=== PATIENT | male | born 1945 | race Caucasian/White ===

== ENCOUNTER 2017-02-27 21:15 | Inpatient (IN) | payer OTHER, MEDICARE ==
[2017-02-27] MEDS ORDERED: NS 1,000 ML IV ONE (21:33)
[2017-02-27 21:40] LABS: % IMMATURE GRANULYOCYTES 0.3 % (0.0-1.1); ABSOLUTE IMMATURE GRANULOCYTES 0.03 10^3/uL (0.00-0.10); ADD DIFF? NO; ADD MORPH? NO; ADD SCAN? NO; ATYPICAL LYMPHOCYTE FLAG 20 (0-99); FRAGMENT RBC FLAG 0 (0-99); HEMATOCRIT 45.3 % (40.0-51.0); HEMOGLOBIN 15.5 g/dL (13.7-17.5); LEFT SHIFT FLG 0 (0-99); LIPEMIA HEMOLYSIS FLAG 90 (0-99); MEAN CELL HEMOGLOBIN 31.3 pg (27.9-34.1); MEAN CELL HEMOGLOBIN CONCENTR. 34.2 g/dL (32.4-36.7); MEAN CELL VOLUME 91.5 fL (81.5-99.8); MEAN PLATELET VOLUME 10.8 fL (8.7-11.7); PLATELET CLUMPS FLAG 20 (0-99); PLATELET COUNT 190 10^3/uL (150-400); RED BLOOD CELL COUNT 4.95 10^6/uL (4.40-6.38); RED CELL DISTRIBUTION WIDTH 12.7 % (11.5-15.2)
--- NOTE | 2017-02-27 21:46 | CPEKG ---
Heart Rate: 68 RR Interval: 882 P-R Interval: 176 QRSD Interval: 88 QT Interval: 400 QTC Interval: 426 P [place]: 68 QRS [place]: 45 T Wave [place]: 17 EKG Severity - OTHERWISE NORMAL ECG - EKG Impression: SINUS RHYTHM EKG Impression: VENTRICULAR PREMATURE COMPLEX Electronically Signed By: Marlon Dumont 27-Feb-2017 22:10:13
[2017-02-27 21:51] LABS: INR 1.04 (0.83-1.16); PROTIME(PATIENT) 13.3 SEC (12.0-15.0)
[2017-02-27 21:52] LABS: APTT 26.9 SEC (23.0-38.0)
[2017-02-27 21:53] LABS: ALANINE AMINOTRANSFERASE 44 IU/L (21-72); ALBUMIN 3.6 g/dL (3.5-5.0); ALKALINE PHOSPHATASE 84 IU/L (38-126); ANION GAP 12 mEq/L (8-16); ASPARTATE AMINOTRANSFERASE 34 IU/L (17-59); BILIRUBIN,TOTAL 1.3 mg/dL (0.1-1.4); CARBON DIOXIDE 22 mEq/l (22-31); CHLORIDE 106 mEq/L (97-110); GLOMERULAR FILTRATION RATE > 60; GLUCOSE 84 mg/dL (70-100); POTASSIUM 4.1 mEq/L (3.5-5.2); SODIUM 140 mEq/L (134-144); TOTAL PROTEIN 6.5 g/dL (6.3-8.2)
[2017-02-27] MEDS ORDERED: IOPAMIDOL (ISOVUE 370) 100 ML BTL IV ONE (21:56)
--- NOTE | 2017-02-27 22:01 | EDPHY ---
H & P Stated Complaint: r/o cva onset 1999 Time Seen by Provider: 02/27/17 21:20 HPI/ROS: This patient had onset of expressive aphasia at 8:00 p.m. tonight while he was riding with a janet back from a fishing trip in [place] all day. Is bloody reports that the patient had difficulty finding words and also some associated dysarthria. His friend also felt like the patient might of had some facial asymmetry earlier that seems to have resolved citing some left facial droop. However, his body admits that was subtly noticed mostly the changes in the patient's speech. The symptoms resolved after about 545 minutes but then started recurring approximately 15 minutes prior to arrival here. Physiologic stressors over the last 24 hours includes only 45 minutes of sleep last night and drinking alcohol earlier in the day-4 beers and 4 shots. In recent history , the patient notes that while working approximately 1 week ago [employer] he had some difficulty with word finding a stumbled over words. The symptoms resolved within hours and he did not see a physician at that time. ROS: Constitutional: No recent fevers. No other constitutional complaints except for fatigue from lack of sleep and fishing all day in the sun. He admits he did not drink much in the way of fluids today other than alcohol. Neuro: No headache. He reports no visual changes. He reports no focal numbness tingling or weakness. Pulmonary: No cough shortness of breath Cardiovascular: No chest pain or heart palpitations. No lightheadedness no lower extremity swelling. GI: No nausea or vomiting. Normal bowel movements. : No symptoms Integumentary: No skin rash. 10 point ROS is otherwise negative. Source: Patient, Other (A friend accompanies him who happens to be a quality specialist who was fishing with him today.) Exam Limitations: Clinical condition - Medical/Surgical History PMH: Coronary artery disease with an LAD stent without WA [address] Arnold Dumont Hypertension Dyslipidemia Other PMH: stent - Family History Significant Family History: Other (Ischemic stroke) - Social History Smoking Status: Never smoked Alcohol Use: Occasionally (Including 4 shots in for beers early in the day.) Drug Use: None - Physical Exam Exam: Physical exam: Vital signs are normal General: Patient is in no acute distress. HEENT: Is no external evidence of trauma on exam. Eyes: Pupils are equal and reactive to light. Extraocular motions are intact. Optic fundi: Clear with no papilledema or hemorrhage. Nose atraumatic. Ears: Clear bilaterally with no hemotympanum. Oropharynx: No dental trauma or malocclusion. No intraoral lacerations. Eyes: Pupils are equal and reactive to light. Extraocular motions are intact. Optic fundi: Clear with no papilledema or hemorrhage. Lungs: Clear to auscultation bilaterally Neck: Supple no meningismus. Cardiac: Regular rate and rhythm no murmur gallop or rub. Abdomen: Soft nontender no organomegaly Neuro: NIH stroke scale of 1 initially for mild dysarthria. Cranial nerves II through XII intact. Cerebellar exam is normal as judged by symmetric rapid hand movements bilaterally. No pronator drift. No sensory or motor deficits are appreciated other than initial dysarthria and perhaps some mild word- finding difficulties. Initial differential diagnosis: Stroke, TIA, alcohol intoxication, heat exhaustion, metabolic disarray, DIRECTOR OF SURGERY lesion, intracranial bleed Constitutional: Initial Vital Signs Temperature (C) 36.5 C 02/27/17 21:23 Heart Rate 64 02/27/17 21:23 Respiratory Rate 16 02/27/17 21:23 Blood Pressure 152/97 H 02/27/17 21:23 O2 Sat (%) 96 02/27/17 21:23 O2 Delivery Mode Room Air Allergies/Adverse Reactions: No Known Allergies Allergy (Unverified 08/21/10 12:23) Medical Decision Making - Diagnostics EKG Interpretation: 12 lead EKG performed shortly after arrival at 9:44 p.m. reveals sinus rhythm at 68 Intervals: Normal throughout [place]: Normal ST segments: Normal throughout 1 PVC overall assessment: Sinus rhythm with 1 PVC. No significant interval change when compared to prior EKG dated August 22, 2010 Imaging Results: Imaging Impressions Head CT 02/27/17 21:20 Impression: 1. Left frontal cortical 3- x 3-cm encephalomalacia possibly representing an old infarct. Less likely differential includes arachnoid cyst. 2. Posterior left frontal lobe 3- x 2.5-cm subcortical white matter hypodensity suggesting vasogenic edema, which may be related to venous infarct or underlying neoplasm versus metastasis. 3. Recommend MRI brain, without and with contrast enhancement, for further evaluation. Findings and recommendations discussed with Emergency Department physician, Marlon Dumont M.D., at 2139 hours, on February 27, 2017. Final report concurs with initial preliminary interpretation. E:GI/amm Head CTA 02/27/17 21:54 Impression: 1. No carotid occlusion, dissection, or significant atherosclerotic disease. 2. No vertebral dissection or occlusion. Measurement of carotid stenosis is based on the residual internal carotid diameter with [place] Symptomatic Carotid Endarterectomy Trial (NASCET) based stenosis levels. CT Angiogram of the Brain Clinical Indications: Stroke protocol. Dysarthria, TIA versus stroke. Technique: CT angiogram of the brain and neck was performed, with the uneventful intravenous administration of 90 mL Isovue-370 contrast. Multiplanar reconstructions including 3D reconstructions performed and evaluated on [email or web address].fma workstation in order to better evaluate the [place] vessels. Images were manipulated by the radiologist at the computer workstation. Dose reduction techniques were utilized. Findings: Major vessels of the [place] are adequately displayed, demonstrating no evidence of aneurysm, vascular malformation, flow-limiting stenosis, or occlusion. Bilateral cavernous internal carotid arteries and vertebrobasilar system demonstrates no evidence of flow-limiting stenosis, aneurysm, occlusion, or dissection. Superior sagittal sinus, transverse sinuses , and major veins demonstrate no evidence of intraluminal thrombi. However, in the posterior left frontal lobe posterior to the left sylvian fissure, there is a complex cystic and solid mass, measuring 3.8 x 3.2 x 4.2 cm , with a cystic component inferiorly and a nodular enhancing component along the superior margin cortex, measuring 2.5 x 2 x 1.8 cm, with adjacent posteromedial vasogenic edema. Mild mass effect, without midline shift. Impression: 1. 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 2. No evidence of flow-limiting [place] stenosis or superior sagittal sinus thrombosis. Findings and recommendations discussed with Emergency Department physician, Marlon Dumont M.D., at 2223 hours, on February 27, 2017. Final report concurs with initial preliminary interpretation. Neck CTA 02/27/17 21:54 Impression: 1. No carotid occlusion, dissection, or significant atherosclerotic disease. 2. No vertebral dissection or occlusion. Measurement of carotid stenosis is based on the residual internal carotid diameter with [place] Symptomatic Carotid Endarterectomy Trial (NASCET) based stenosis levels. CT Angiogram of the Brain Clinical Indications: Stroke protocol. Dysarthria, TIA versus stroke. Technique: CT angiogram of the brain and neck was performed, with the uneventful intravenous administration of 90 mL Isovue-370 contrast. Multiplanar reconstructions including 3D reconstructions performed and evaluated on [email or web address].fma workstation in order to better evaluate the [place] vessels. Images were manipulated by the radiologist at the computer workstation. Dose reduction techniques were utilized. Findings: Major vessels of the [place] are adequately displayed, demonstrating no evidence of aneurysm, vascular malformation, flow-limiting stenosis, or occlusion. Bilateral cavernous internal carotid arteries and vertebrobasilar system demonstrates no evidence of flow-limiting stenosis, aneurysm, occlusion, or dissection. Superior sagittal sinus, transverse sinuses , and major veins demonstrate no evidence of intraluminal thrombi. However, in the posterior left frontal lobe posterior to the left sylvian fissure, there is a complex cystic and solid mass, measuring 3.8 x 3.2 x 4.2 cm , with a cystic component inferiorly and a nodular enhancing component along the superior margin cortex, measuring 2.5 x 2 x 1.8 cm, with adjacent posteromedial vasogenic edema. Mild mass effect, without midline shift. Impression: 1. 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 2. No evidence of flow-limiting [place] stenosis or superior sagittal sinus thrombosis. Findings and recommendations discussed with Emergency Department physician, Marlon Dumont M.D., at 2223 hours, on February 27, 2017. Final report concurs with initial preliminary interpretation. CT brain without contrast discussed with Dr. Juarez-Radiology - evidence of old 3 cm left frontoparietal stroke versus subarachnoid cyst Imaging: Discussed imaging studies w/ lead pony rider Radiologist ED Course/Re-evaluation: Patient's initial NIH stroke scale is 1 for mild dysarthria. 20 minutes after arrival repeat stroke scale is 0. I discussed the case with Dr. Rojas on-call for [facility]. Given the patient's lack of neurologic disability currently he is not a candidate for tPA. It is unclear if this patient has old stroke on be notes to him that is unmasked by current physiologic stressors of dehydration and earlier alcohol consumption or if he has TIA or new early evolving stroke. Will proceed with CT angio head and neck and plan for admission for further workup and treatment. Hospitalist is paged CT angio head I reviewed an discuss with our radiologist Dr. Juarez. He notes that the patient's intracranial findings are consistent with intracranial tumor rather than ischemic stroke. The lesion is left frontal 2.6 x 1 points 9 cm and with surrounding vasogenic edema is 4.2 x 3.2 cm. I discussed this finding with the patient and he wishes to proceed with admission for further workup and treatment. His friend-a off duty quality specialist will drive him to the hospital for his admission to Dr. Lio Flores, the neurosurgeon on-call for [facility] with whom I discussed the case. Discussion: It may be that the patient's physiologic stressors refer to above on masked this intracranial lesion. He will be admitted for further workup and treatment - Data Points Laboratory Results: Laboratory Results 02/27/17 21:25 02/27/17 21:25 02/27/17 02/27/17 02/27/17 21:27 21:25 21:25 WBC RBC Hgb POC Hgb 16.0 gm/dL gm/dL (13.7-17.5) Hct POC Hct 47 % % (40-51) MCV MCH MCHC RDW Plt Count MPV Neut % (Auto) Lymph % (Auto) [place] % (Auto) Eos % (Auto) Baso % (Auto) Nucleat RBC Rel Count Absolute Neuts (auto) Absolute Lymphs (auto) Absolute Monos (auto) Absolute Eos (auto) Absolute Basos (auto) Absolute Nucleated RBC Immature Gran % Immature Gran # PT 13.3 SEC SEC (12.0-15.0) INR 1.04 (0.83-1.16) APTT 26.9 SEC SEC (23.0-38.0) POC Sodium 143 mEq/L mEq/L (134-144) Sodium 140 mEq/L mEq/L (134-144) POC Potassium 3.9 mEq/L mEq/L (3.3-5.0) Potassium 4.1 mEq/L mEq/L (3.5-5.2) POC Chloride 106 mEq/L mEq/L (97-110) Chloride 106 mEq/L mEq/L (97-110) Carbon Dioxide 22 mEq/l mEq/l (22-31) Anion Gap 12 mEq/L mEq/L (8-16) POC BUN 23 mg/dL mg/dL (7-23) BUN 21 mg/dL mg/dL (7-23) Creatinine 1.0 mg/dL mg/dL (0.7-1.3) POC Creatinine 1.1 mg/dL mg/dL (0.7-1.3) Estimated GFR > 60 Glucose 84 mg/dL mg/dL (70-100) POC Glucose 89 mg/dL mg/dL (70-100) Calcium 9.0 mg/dL mg/dL (8.5-10.4) Total Bilirubin 1.3 mg/dL D mg/dL (0.1-1.4) AST 34 IU/L IU/L (17-59) ALT 44 IU/L IU/L (21-72) Alkaline Phosphatase 84 IU/L IU/L (38-126) Troponin I < 0.012 ng/mL ng/mL (0-0.034) Total Protein 6.5 g/dL g/dL (6.3-8.2) Albumin 3.6 g/dL g/dL (3.5-5.0) 02/27/17 21:25 WBC 9.76 10^3/uL H 10^3/uL (3.80-9.50) RBC 4.95 10^6/uL 10^6/uL (4.40-6.38) Hgb 15.5 g/dL g/dL (13.7-17.5) POC Hgb Hct 45.3 % % (40.0-51.0) POC Hct MCV 91.5 fL fL (81.5-99.8) MCH 31.3 pg pg (27.9-34.1) MCHC 34.2 g/dL g/dL (32.4-36.7) RDW 12.7 % % (11.5-15.2) Plt Count 190 10^3/uL 10^3/uL (150-400) MPV 10.8 fL fL (8.7-11.7) Neut % (Auto) 48.7 % % (39.3-74.2) Lymph % (Auto) 37.4 % % (15.0-45.0) [place] % (Auto) 9.7 % % (4.5-13.0) Eos % (Auto) 3.2 % % (0.6-7.6) Baso % (Auto) 0.7 % % (0.3-1.7) Nucleat RBC Rel Count 0.0 % % (0.0-0.2) Absolute Neuts (auto) 4.75 10^3/uL 10^3/uL (1.70-6.50) Absolute Lymphs (auto) 3.65 10^3/uL H 10^3/uL (1.00-3.00) Absolute Monos (auto) 0.95 10^3/uL H 10^3/uL (0.30-0.80) Absolute Eos (auto) 0.31 10^3/uL 10^3/uL (0.03-0.40) Absolute Basos (auto) 0.07 10^3/uL 10^3/uL (0.02-0.10) Absolute Nucleated RBC 0.00 10^3/uL 10^3/uL (0-0.01) Immature Gran % 0.3 % % (0.0-1.1) Immature Gran # 0.03 10^3/uL 10^3/uL (0.00-0.10) PT INR APTT POC Sodium Sodium POC Potassium Potassium POC Chloride Chloride Carbon Dioxide Anion Gap POC BUN BUN Creatinine POC Creatinine Estimated GFR Glucose POC Glucose Calcium Total Bilirubin AST ALT Alkaline Phosphatase Troponin I Total Protein Albumin Point of Care Test Results: 02/27/17 21:27 POC Sodium 143 POC Potassium 3.9 POC Chloride 106 POC BUN 23 POC Creatinine 1.1 POC Glucose 89 Departure - Departure Disposition: [facility] Inpatient Acute Clinical Impression: Intracranial space-occupying lesion Mental status change Qualifiers: Altered mental status type: unspecified Qualified Code(s): R41.82 - Altered mental status, unspecified Clinical Impression: (Ruled Out): Stroke Condition: Good
[2017-02-27 22:05] LABS: TROPONIN I < 0.012 ng/mL (0-0.034)
[2017-02-28] MEDS ORDERED: ONDANSETRON 4 MG/2 ML VIAL IVP PRN (00:31)
[2017-02-28] MEDS ORDERED: ACETAMINOPHEN 325 MG TAB PO PRN (00:31)
[2017-02-28] MEDS ORDERED: ONDANSETRON DISINTEGRATING 4 MG TAB PO PRN (00:31)
[2017-02-28] MEDS ORDERED: oxyCODONE IR 5 MG TAB PO PRN (00:31)
[2017-02-28] MEDS ORDERED: HYDROCODONE/APAP 5/325 TAB PO PRN (00:31)
[2017-02-28] MEDS ORDERED: NS 1,000 ML IV SCH (00:45)
[2017-02-28] MEDS ORDERED: GADOBUTROL 10 ML VIAL IVP ONE (07:02)
[2017-02-28] MEDS ORDERED: IOPAMIDOL (ISOVUE-300) 100 ML BTL ONE (10:53)
--- NOTE | 2017-02-28 11:08 | GHP ---
[f rep st] HISTORY AND PHYSICAL DATE OF ADMISSION: 02/27/2017 Patient was seen evaluated approximately 6:30 a.m. on the general care floor at [facility]. HISTORY OF PRESENT ILLNESS: The patient is a 71-year-old man who was in his normal state of health until he had a sudden onset of expressive aphasia yesterday, which was really aboulia. This was edilberto roximately 8:00 p.m., when he was riding back from a fishing trip to [place]. He says that he noted his tongue felt heavy and he was unable to speak while riding in the car and he got his friends att ention and this lasted only for 1-2 minutes and completely resolved. He then arrived home and had a similar episode lasting only a few seconds but was difficult for him to speak. He notes that about a week or 2 ago he did have some numbness of the right side of his mouth with some drooling, that also lasted only for short time and resolved completely. He presented to the free standing ER last night for evaluation of this complaint. He denies any headaches or other neurologic symptoms. He d oes not have any other very significant medical history other than a cardiac stent and some hyperten sheyla. He has not had any other change in his speech anytime recently. He does note that he had a v jabari short amount of sleep the night before and was drinking some alcohol earlier in the day during t he fishing trip. Otherwise he currently has no complaints. He had a CT scan with contrast to tasneem p possible stroke, which revealed a cystic mass in the left frontal region which appeared to be dura l based. He was then sent over to [facility] for admission and further workup of a likely tumor. REVIEW OF SYSTEMS: A 10-point review of systems was negative other than described above in the HPI. PAST MEDICAL HISTORY: 1. Coronary artery disease with cardiac stent 6 years ago. 2. Hypertension. 3. Dyslipidemia. PAST SURGICAL HISTORY: 1. Cardiac stenting. 2. Right shoulder surgery. FAMILY HISTORY: Negative for brain tumors but positive for stroke. SOCIAL HISTORY: The patient is a lifelong nonsmoker. He drinks moderate alcohol per his descriptio n and had 4 shots of hard liquor and 4 beers earlier in the day, during the fishing trip. He denies any other drug use. He currently works at [employer] and part-time at [employer]. ALLERGIES: No known drug allergies. MEDICATIONS: His medications were reviewed in the electronic medical record. I have no further add itions at this time. PHYSICAL EXAM: Currently, he is afebrile with normal stable vital signs. He is awake, alert, and o riented x3. The speech is currently clear and fluent with no obvious tears. His pupils are equal, round, reactive to light. Extraocular movements are intact. Face symmetric. Tongue is midline. H e has full 5/5 strength in all 4 limbs in all muscle groups. His sensation is intact. There is no pronator drift. There is no dysmetria or dysdiadochokinesia. His deep tendon reflexes are normal. In short he has a normal neurologic exam. IMAGING: The patient's CTA was reviewed and he has a partially solid, partially cystic mass in the left inferior frontal region with a small amount of surrounding vasogenic edema. He has since that time, and since the time I saw him, had his MRI scan done which shows the same mass with some contra st enhancement. This appears to be dural based. It appears to be an extra-axial mass that is effac ing the surrounding brain but there was actually a very small amount of actual shift. This would be most consistent with possibly a dural-based metastasis or possibly even meningioma with a cystic po rtion. RESULTS REVIEW: The white count is 9.7, hemoglobin 15.5, hematocrit is 45.3, platelet count is a 19 0,000. His PT is 13.3, INR 1.04, PTT 26.9. Sodium is 143, potassium 3.9, BUN is 21, creatinine 1.0 . ASSESSMENT/PLAN: The patient is a 71-year-old man who presented with aphasia, which is not complete ly resolved. 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 Further options would be glioma neoplasm or some more unusua l tumors. I will get a CT of the chest, abdomen, pelvis as a metastatic workup and we will see what this shows. Beyond that, I will place him on Keppra 750 twice daily as his episodes that he had ma y have been focal seizures. I think for the time being we can probably hold off on steroids, as he is currently asymptomatic. It is quite likely that he will need resection of this lesion with biop sy and I will speak with him about the possibility of doing this at some point next week. If we fin d a mass in the chest or abdomen then we could potentially biopsy this first but it is likely that t his mass will still need to be removed. I will discuss all this with the patient in detail. We wi ll make a finalized plan later on today. Our discussion this morning, we discussed the plans for sc anning and further workup and he was very much in agreement. /[id number]/MODL
--- NOTE | 2017-02-28 16:39 | SOAPPROG ---
SOAP Progress Note Assessment/Plan: Assessment: left frontal dural based cystic mass with effacement of surrounding inferior frontal lobe Plan: - will eventually need surgical resection/biopsy, discussed this with the patient. He will d/c home tomorrow and followup in clinic next week and we will work to schedule his surgery - CT chest/abdomen/pelvis: reads pending - keppra 750mg PO BID (script in chart) - I spoke to him for quite some time and answered all of his questions 02/28/17 16:36 Subjective: no current complaints Objective: Vital Signs Temp Pulse Resp BP Pulse Ox 36.6 C 55 L 15 132/79 H 93 02/28/17 15:39 02/28/17 15:39 02/28/17 15:39 02/28/17 15:39 02/28/17 15:39 02/27/17 02/28/17 03/01/17 05:59 05:59 05:59 Intake Total 1000 Balance 1000 PT 13.3 SEC (12.0-15.0) 02/27/17 21:25 INR 1.04 (0.83-1.16) 02/27/17 21:25 AAOx3 full strength and sensation speech currently clear and fluent CNII-XII grossly normal - Time Spent With Patient Time Spent With Patient: 30min - Pending Discharge Pending Discharge Within 24 Hours: Yes Pending Discharge Date: 03/01/17 Pending Discharge Time: 11:00 ICD10 Worksheet Patient Problems: Problems Problem Status Onset Intracranial space-occupying lesion Acute Mental status change Acute
[2017-02-28] MEDS ORDERED: ATORVASTATIN CALCIUM 20 MG TAB PO SCH (21:00)
[2017-02-28] MEDS: levETIRAcetam 500 MG TAB PO SCH (21:30)
[2017-02-28] MEDS: METOPROLOL TARTRATE 25 MG TAB PO SCH (21:30)
[2017-02-28 23:37] VITALS: RESP 18
[2017-03-01 05:17] VITALS: BP 120/73; PULSE 52; TEMP 97.7; O2SAT 97
[2017-03-01] MEDS ORDERED: LISINOPRIL 5 MG TAB PO SCH (09:00)
[2017-03-01] MEDS ORDERED: TAMSULOSIN HCL 0.4 MG CAP PO SCH (09:00)
[2017-03-01] MEDS: levETIRAcetam 500 MG TAB PO SCH (10:04)
[2017-03-01] MEDS: METOPROLOL TARTRATE 25 MG TAB PO SCH (10:07)
--- NOTE | 2017-03-01 12:18 | SOAPPROG ---
SOAP Progress Note Assessment/Plan: Assessment: left frontal dural based cystic mass with effacement of surrounding inferior frontal lobe aphasia improved no new issues no mets to C/A/P on CT scans Plan: - will eventually need surgical resection/biopsy, discussed this with the patient. He will d/c home today and followup in clinic next week and we will work to schedule his surgery - keppra 750mg PO BID (script in chart) 03/01/17 12:17 Subjective: awake, alert, mild MA no overnight issues Objective: Vital Signs Temp Pulse Resp BP Pulse Ox 36.5 C 52 L 18 120/73 97 03/01/17 04:00 03/01/17 10:07 03/01/17 04:00 03/01/17 10:07 03/01/17 04:00 02/28/17 03/01/17 03/02/17 05:59 05:59 05:59 Intake Total 1000 2000 Balance 1000 2000 PT 13.3 SEC (12.0-15.0) 02/27/17 21:25 INR 1.04 (0.83-1.16) 02/27/17 21:25 NEURO: FAJARDO, sens +LT ambulatory PERRLA, EOMI speech clear ICD10 Worksheet Patient Problems: Problems Problem Status Onset Intracranial space-occupying lesion Acute Mental status change Acute
== END 2017-03-01 14:28 | disposition home or self-care (01) | DRG 645 ==
LOC: CED 21:15 → CEDHOLD 22:18 → F3N 02-28 00:05
PROVIDERS: ADMIT Family Medicine; ATTEND Family Medicine
DX: D49.7 Neoplasm of unspecified behavior of endocrine glands and other parts of nervous system (principal); I25.10 Atherosclerotic heart disease of native coronary artery without angina pectoris; I10 Essential (primary) hypertension; E78.5 Hyperlipidemia, unspecified; Z95.5 Presence of coronary angioplasty implant and graft
CPT/HCPCS: 70450-PO; 70496-PO; 70498-PO; 80053-PO; 82947-QW; 84484-PO; 85025-PO; 85610-PO; 85730-PO; A9585; Q9967

== ENCOUNTER → 2017-03-06 | Outpatient (CLI) | payer OTHER, MEDICARE | LOC: BHLMT 09:30 | PROVIDERS: ATTEND Internal Medicine Cardiovascular Disease | DX: Z01.810 Encounter for preprocedural cardiovascular examination (principal); I25.10 Atherosclerotic heart disease of native coronary artery without angina pectoris | CPT/HCPCS: 78452; 93017; A9500; J2785 ==

== ENCOUNTER 2017-03-11 12:45 | Inpatient (IN) | payer OTHER, MEDICARE ==
[2017-03-11] MEDS ORDERED: LIDOCAINE 1% 2 ML INJ ONE (13:19)
[2017-03-11] MEDS ORDERED: LR 1,000 ML IV ONE (14:17)
--- NOTE | 2017-03-11 14:49 | PDANEPAE ---
<Oliver Roy - Last Filed: 03/11/17 14:48> ANE History of Present Illness crani for tumor ANE Past Medical History - Cardiovascular History Hx Hypertension: Yes Hx Coronary Artery / Peripheral Vascular Disease: Yes - Pulmonary History Hx COPD: No Hx Asthma/Reactive Airway Disease: No Hx Recent Upper Respiratory Infection: No Hx Oxygen in Use at Home: No - Neurologic History Hx Cerebrovascular Accident: No Hx Seizures: No Hx Dementia: No - Endocrine History Hx Diabetes: No - Renal History Hx Renal Disorders: No - Liver History Hx Hepatic Disorders: No - Neurological & Psychiatric Hx Hx Neurological and Psychiatric Disorders: No - Cancer History Hx Cancer: No - Congenital Disorder History Hx Congenital Disorders: No - GI History Hx Gastrointestinal Disorders: No - Chronic Pain History Chronic Pain: No ANE Review of Systems - Exercise capacity METS (RN): 4 METS ANE Patient History - Allergies Allergies/Adverse Reactions: No Known Allergies Allergy (Verified 02/28/17 07:58) - Home Medications Home Medications: Atorvastatin Calcium [Lipitor 20 mg (*)] 20 mg PO HS 02/28/17 [Last Taken 08:00] Lisinopril [Zestril 5 mg (*)] 5 mg PO DAILY 02/28/17 [Last Taken 03/11/17 08:00] Metoprolol Tartrate [Lopressor 25 mg (*)] 25 mg PO BID 02/28/17 [Last Taken 08:00] Tamsulosin HCl [Flomax 0.4 MG (*)] 0.4 mg PO DAILY 02/28/17 [Last Taken 08:00] - NPO status NPO Since - Liquids (Date): 03/10/17 NPO Since - Liquids (Time): 23:00 NPO Since - Solids (Date): 03/10/17 NPO Since - Solids (Time): 18:00 - Smoking Hx Smoking Status: Never smoked - Family Anes Hx Family Hx Anesthesia Complications: BROTHER HAD TROUBLE AWAKENING ONCE-NO PROBLEM SINCE ANE Labs/Vital Signs - Vital Signs Blood Pressure: 141/75 Heart Rate: 79 Respiratory Rate: 16 O2 Sat (%): 93 Height: 165.1 cm Weight: 83.915 kg <Bryan Rangel - Last Filed: 03/11/17 16:22> ANE Physical Exam - Airway Neck exam: FROM - Pulmonary Pulmonary: no respiratory distress - Cardiovascular Cardiovascular: regular rate and rhythym ANE Anesthesia Plan Anesthesia Plan: general endotracheal anesthesia Lines/Monitors: arterial line
[2017-03-11] MEDS ORDERED: ROCURONIUM 50 MG/5 ML VIAL ONE ×2 (14:51→17:45)
[2017-03-11] MEDS ORDERED: fentaNYL 100 MCG/2 ML INJ ONE ×3 (14:51→17:24)
[2017-03-11] MEDS ORDERED: DEXAMETHASONE 4 MG/ML VIAL ONE (14:51)
[2017-03-11] MEDS ORDERED: PROPOFOL 200 MG/20 ML VIAL ONE ×2 (14:52→17:25)
[2017-03-11] MEDS ORDERED: LIDOCAINE 2% 5 ML SDV ONE (14:52)
[2017-03-11] MEDS ORDERED: ceFAZolin 2 GM/DEXTROSE 100 ML IV ONE (15:00)
[2017-03-11] MEDS ORDERED: GADOBUTROL 10 ML VIAL IVP ONE (15:03)
[2017-03-11] MEDS ORDERED: SURGIFLO MATRIX KIT WITH THROMBIN TP ONE (15:21)
[2017-03-11] MEDS ORDERED: MANNITOL 20% 100 GM/500 ML BAG IV ONE (15:22)
[2017-03-11] MEDS ORDERED: BUPIVACAINE/EPI 0.25% 30 ML SDV ONE (15:22)
[2017-03-11] MEDS ORDERED: THROMBIN (BOVINE) 5,000 UNIT VIAL TP ONE (15:22)
[2017-03-11] MEDS ORDERED: GENTAMICIN SULFATE 80 MG/2 ML VIAL ONE ×2 (15:23→15:28)
[2017-03-11] MEDS ORDERED: BACITRACIN 50,000 UNITS/10 ML SYR IRR ONE (15:23)
[2017-03-11] MEDS ORDERED: AVITENE POWDER 1 GM JAR TP ONE (15:25)
--- NOTE | 2017-03-11 16:11 | PDHPUP ---
History & Physical Update H&P update statement: This history and physical update is based on an assessment of the patient which was completed after admission or registration (within 24 hours), but prior to the surgery/procedure. H&P update: H&P reviewed & patient examined, no change in patient's condition since H&P completed
[2017-03-11] MEDS ORDERED: MIDAZOLAM 2 MG/2 ML VIAL IVP ONE (16:15)
[2017-03-11] MEDS ORDERED: LACTULOSE 20 GM/30 ML UDCUP PO PRN (16:17)
[2017-03-11] MEDS ORDERED: ONDANSETRON DISINTEGRATING 4 MG TAB PO PRN (16:17)
[2017-03-11] MEDS ORDERED: MAGNESIUM HYDROXIDE 30 ML UDCUP PO PRN (16:17)
[2017-03-11] MEDS ORDERED: ONDANSETRON 4 MG/2 ML VIAL IVP PRN (16:17)
[2017-03-11] MEDS ORDERED: BISACODYL 10 MG SUPP PR PRN (16:17)
[2017-03-11] MEDS ORDERED: POLYETHYLENE GLYCOL 3350 17 GM PKT PO PRN (16:17)
[2017-03-11] MEDS ORDERED: ACETAMINOPHEN 325 MG TAB PO PRN ×2 (16:17)
[2017-03-11] MEDS ORDERED: niCARdipine/NACL 200 ML IV PRN (16:17)
[2017-03-11] MEDS ORDERED: PROMETHAZINE HCL 25 MG/ML INJ IVP PRN (16:17)
[2017-03-11] MEDS ORDERED: *MD ORDERING ONLY-DEXAMETHASONE TAPER PO SCH (16:30)
[2017-03-11] MEDS ORDERED: NS W/ 20 KCl/L 1,000 ML IV SCH (16:30)
--- NOTE | 2017-03-11 17:37 | POSTOPPROG ---
Post Op Note Date of Operation: 03/11/17 Surgeon: Lio Flores Chin Strap Cutter: Gail Coppola Anesthesia: GET(General Endotracheal) Pre-op Diagnosis: Left frontal brain mass Post-op Diagnosis: same Procedure: Left frontal craniotomy for resection of brain mass Inf/Abcess present in the surg proc area at time of surgery?: No Depth: Organ Space EBL: Minimal Drains: Godfrey Kinney (Subgaleal) SOAP Progress Note Assessment/Plan: Assessment: Plan: 03/11/17 17:20 S: Patient in ICU. Stable. Has mild headache. O: NAD, VSS PERRL, EOMI CN II-XII grossly intact, speech fluent No droop FAJARDO X4 to command Incision c/d/i A: 71 yo male sp left frontal craniotomy for resection of brain mass. 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 Flores in ICU postop 03/11/17 21:23 Objective: Vital Signs Temp Pulse Resp BP Pulse Ox 36.6 C 79 16 141/75 H 93 03/11/17 16:31 03/11/17 16:31 03/11/17 16:31 03/11/17 16:31 03/11/17 16:31
[2017-03-11] MEDS ORDERED: epHEDrine SULFATE 10 MG/ML SYR ONE (17:38)
[2017-03-11] MEDS ORDERED: SUGAMMADEX SODIUM 200 MG/2 ML VIAL IVP ONE (19:10)
[2017-03-11] MEDS ORDERED: ONDANSETRON 4 MG/2 ML VIAL ONE (19:34)
[2017-03-11] MEDS: SENNOSIDES/DOCUSATE SODIUM TAB PO SCH (20:39)
[2017-03-11] MEDS: HYDROCODONE/APAP 10/325 TAB PO PRN (20:39)
[2017-03-11] MEDS: levETIRAcetam 500 MG TAB PO SCH (20:39)
[2017-03-12] MEDS: DEXAMETHASONE 4 MG TAB PO SCH ×4 (00:28→18:00)
--- NOTE | 2017-03-12 05:48 | GOP ---
[f rep st] OPERATIVE REPORT DATE OF OPERATION: 03/11/2017 SURGEON: Lio Flores MD NEUROSURGEON: Lio Flores MD. CORE PASTER: SUSIE Woodard. PREOPERATIVE DIAGNOSIS: Left frontal dural based cystic mass. The patient presented with possible seizures with some speech arrest. He did not have any further events after being in the hospital an d presents electively today for resection of this mass with biopsy. POSTOPERATIVE DIAGNOSIS: Left frontal dural based cystic mass. The patient presented with possible seizures with some speech arrest. He did not have any further events after being in the hospital a nd presents electively today for resection of this mass with biopsy. PROCEDURE PERFORMED: 1. Left frontotemporal craniotomy. 2. Microsurgical gross total resection of dural based cystic left frontal mass. 3. Use of the operative microscope. 4. Stealth stereotactic neuronavigation for incision planning and volumetric gross total resection. FINDINGS: Successful tumor removal. SPECIMENS: Left frontal dural based cystic mass with the cyst wall for frozen and permanent section . ESTIMATED BLOOD LOSS: 100 cc. INDICATIONS: The patient is a 71-year-old man who presented with several episodes of speech arrest. These were not clearly seizure activity, but scans were done and he was found to have a large left frontal cystic mass with a dural base. A CT of the chest, abdomen, and pelvis was negative for mal ignancy. We scheduled him today electively for biopsy and resection. DESCRIPTION OF PROCEDURE: Informed consent was obtained from the patient. The patient was brought t o the operating room, was placed in supine position on the operating table. A formal time-out was p erformed, identifying the patient by name, medical record number, and date of . Preoperative a ntibiotics were given. The endotracheal tube was placed and general endotracheal anesthesia was smo othly induced. The patient's head was placed in the [place] pins and turned slightly toward the [facility] side. The Stealth was then registered to the scalp using known surface landmarks and used to lo calize the area of the tumor and plan a gentle reverse question melba style incision on the left side . The skin was infiltrated with 10 cc of 0.25% Marcaine with epinephrine for hemostasis. The head was then prepped and draped in the normal sterile fashion. The skin incision was made using a 10 bl anjelica and the subcutaneous tissues were dissected using monopolar electrocautery. The superficial tem poral artery was preserved and Caren clips were placed for hemostasis. The temporalis muscle and fa scia was opened in line with the incision, and a single myocutaneous flap was retracted anteriorly. The Stealth was again used to localize the area of the tumor to be sure the craniotomy was large en ough and then 2 bur holes were created, 1 in the temporal region and 1 at the coronal suture. The c raniotome was then used to turn a roughly 5 x 5 cm craniotomy flap and all bleeding was controlled w ith bipolar electrocautery and Gelfoam. At this point, the Stealth was again used to localize the a vani of the tumor and the dura was opened approximately 1 cm margins from where the dural base was. This was carried on around the circumference of the tumor using Metzenbaum scissors. Once this was done, the tumor appeared beefy red and quite vascular at the surface. The operative microscope was brought onto the field and the remainder of the procedure was performed under high-power magnificati on. We carefully dissected the tumor away from the cortical tissue. Several large arterialized vei ns were seen coursing from the tumor back out to the cortex, which had clearly been parasitized by t his tumor. These were coagulated and divided. One small artery coursing to the tumor was also coag ulated and divided. Once we were able to remove the superior more solid area of the tumor, the cyst cavity was visualized and the cyst wall was easily removed from the surrounding brain tissue. This was sent for frozen section biopsy, but likely this was only part of the cyst wall as it returned a s likely cyst tissue with some hypercellularity. We then inspected the cavity and given that there was a gross total resection, all bleeding was controlled with bipolar electrocautery and Surgicel wa s placed in the cavity. The brain was slack and appeared well perfused. The wound was then copious ly irrigated with gentamicin irrigation. A piece of Synthecel was then fashioned into a dural patch and this was sewn in a watertight fashion using 4-0 Nurolon. The duraplasty was approximately 3 x 3 cm. Next, a piece of dry Gelfoam was placed over the duraplasty and the craniotomy flap was plate d back in place using Jocoos titanium plates and screws. The temporalis muscle and fascia was clos ed using interrupted 2-0 Vicryl. A submuscular ANTHONY drain was placed and the galea was closed using i nterrupted 2-0 Vicryl. The skin was closed using a running 4-0 Monocryl. The patient was then awak ened in the operating room, was removed from the [place] pins, was then taken to the ICU in stable condition. There were no operative complications. I was scrubbed and present for the entire proced ure. All sponge and needle counts were correct at the end of the case. FLUIDS: Per the anesthesia record. DRAINS: Submuscular ANTHONY. /[id number]/MODL
[2017-03-12 05:52] LABS: ANION GAP 8 mEq/L (8-16); CALCIUM 8.7 mg/dL (8.5-10.4); CARBON DIOXIDE 20 mEq/l (22-31); CHLORIDE 109 mEq/L (97-110); CREATININE 0.9 mg/dL (0.7-1.3); GLOMERULAR FILTRATION RATE > 60; GLUCOSE 118 mg/dL (70-100); POTASSIUM 4.7 mEq/L (3.5-5.2); SODIUM 137 mEq/L (134-144)
[2017-03-12] MEDS: HYDROCODONE/APAP 10/325 TAB PO PRN ×3 (06:40→20:33)
[2017-03-12] MEDS: SENNOSIDES/DOCUSATE SODIUM TAB PO SCH ×2 (07:52→20:28)
[2017-03-12] MEDS: levETIRAcetam 500 MG TAB PO SCH ×2 (07:52→20:28)
[2017-03-12] MEDS ORDERED: GADOBUTROL 10 ML VIAL IVP ONE (09:40)
--- NOTE | 2017-03-12 10:30 | NEUSURGPN ---
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 No complaints Objective: NAD, VSS PERRL, EOMI CN II-XII grossly intact, speech fluent No droop FAJARDO X4 to command Incision c/d/i Neuro Check Frequency: per routine Urinary Catheter in Place: No Catheter Insertion Date: 03/11/17 - Physician Discussed Patient with Dr.: Flores (Discussed POC with Dr Flores, Dr Flores reviewed AM MRI today-ok to transfer to floor) Neurosurgery Physical Exam - Vitals, I&O, Labs I and O 03/11/17 03/12/17 03/13/17 05:59 05:59 05:59 Intake Total 1763 Output Total 540 50 Balance 1223 -50 Weight 83.915 kg 83.915 kg Intake: Oral (ml) 800 IV Intake (ml) 963 Output: Urine (ml) 350 50 Urinal 350 50 ANTHONY Drain Output (ml) 190 Left Head 190 Other: Intake Quantity Yes Sufficient Number of Voids Urinal 3 Vital Signs Temp Pulse Resp BP Pulse Ox 36.6 C 73 18 109/68 97 03/12/17 04:00 03/12/17 09:00 03/12/17 09:00 03/12/17 09:00 03/12/17 09:00 Laboratory Results 03/12/17 05:10 ICD10 Worksheet Patient Problems: Problems Problem Status Onset Intracranial space-occupying lesion Acute Mental status change Acute
[2017-03-12] MEDS: DIAZEPAM 5 MG TAB PO PRN (20:28)
[2017-03-12] MEDS ORDERED: diphenhydrAMINE 25 MG CAP PO ONE (20:33)
[2017-03-13] MEDS: HYDROCODONE/APAP 10/325 TAB PO PRN ×2 (02:14→08:46)
[2017-03-13] MEDS: DIAZEPAM 5 MG TAB PO PRN (02:15)
[2017-03-13] MEDS ORDERED: DEXAMETHASONE 4 MG TAB PO SCH (06:00)
[2017-03-13 07:43] VITALS: RESP 16
--- NOTE | 2017-03-13 08:16 | NEUSURGPN ---
Date of Surgery: 03/11/17 Post Op Day: 2 Assessment/Plan: 71 yo male Left frontal craniotomy for resection of brain mass Plan: -Plan to DC home later today or tomorrow 03/14-patient lives alone does not feel ready to leave this am, his brother will be staying with him for a few days once he is home -Q2hour neuro checks -DC ANTHONY drain -Removed telfa dressing -may shower and get head wet-ok to use baby shampoo on hair -SBP < 140 -On Keppra 750 BID-will continue this at home -Decadron 3 day taper-will continue taper at home -Final Path pending -Patient discussed with Dr Flores Subjective: patient doing well this am, has mild left sided headache Objective: NAD, VSS PERRL, EOMI CN II-XII grossly intact, speech fluent No droop FAJARDO X4 to command Incision c/d/i Neuro Check Frequency: per routine Urinary Catheter in Place: No Catheter Insertion Date: 03/11/17 - Physician Discussed Patient with Dr.: Flores Neurosurgery Physical Exam - Vitals, I&O, Labs I and O 03/12/17 03/13/17 03/14/17 05:59 05:59 05:59 Intake Total 1763 1850 Output Total 540 720 Balance 1223 1130 Weight 83.915 kg Intake: Oral (ml) 800 1800 IV Intake (ml) 963 IV Infused (ml) 50 ceFAZolin 1 GM/DEXTROSE 50 50 ml @ 200 mls/hr IV Q8H [facility] Rx#:[id number] Output: Urine (ml) 350 650 Urinal 350 650 ANTHONY Drain Output (ml) 190 70 Left Head 190 70 Other: Intake Quantity Yes Yes Sufficient Number of Voids Toilet 1 Urinal 3 Vital Signs Temp Pulse Resp BP Pulse Ox 36.6 C 75 16 123/83 H 91 L 03/13/17 07:41 03/13/17 07:41 03/13/17 07:41 03/13/17 07:41 03/13/17 07:41 Laboratory Results 03/12/17 05:10 ICD10 Worksheet Patient Problems: Problems Problem Status Onset Intracranial space-occupying lesion Acute Mental status change Acute
[2017-03-13] MEDS: levETIRAcetam 500 MG TAB PO SCH (08:34)
[2017-03-13] MEDS: SENNOSIDES/DOCUSATE SODIUM TAB PO SCH (08:35)
[2017-03-13 11:20] VITALS: BP 127/80; PULSE 83; TEMP 98.3; O2SAT 93
[2017-03-14] MEDS ORDERED: DEXAMETHASONE 2 MG TAB PO SCH (06:00)
[2017-03-14] MEDS ORDERED: HEPARIN 5,000 UNIT/0.5 ML SYR SC SCH (21:00)
== END 2017-03-13 14:14 | disposition home or self-care (01) | DRG 27 ==
LOC: F3N 13:08 → F2N 19:56 → F3N 03-13 00:43
PROVIDERS: ADMIT Neurological Surgery; ATTEND Neurological Surgery
DX: D32.0 Benign neoplasm of cerebral meninges (principal); Z80.42 Family history of malignant neoplasm of prostate; Z95.5 Presence of coronary angioplasty implant and graft; Z96.611 Presence of right artificial shoulder joint
CPT/HCPCS: A9585; C1713; J0690; J1100; J2250; J2405; J2704; J3010